=== PATIENT | male | born 1960 | race Caucasian/White ===

== ENCOUNTER 2017-05-25 15:45 | Observation (INO) | payer OTHER ==
[~2017-05-25] VITALS: Ht 172.7 cm; Wt 122.9 kg
[2017-05-25 15:56] VITALS: BP 165/78; PULSE 126; RESP 18; TEMP 98.2; O2SAT 97
[2017-05-25] MEDS ORDERED: LOSA50TA PO (15:59)
[2017-05-25] MEDS ORDERED: SODIUM CHLORIDE 0.9% FLUSH 10 ML FLUSH IVF PRN (16:00)
[2017-05-25 16:02] VITALS: O2SAT 97
[2017-05-25 16:14] LABS: BASOPHIL # 0.4 TH/MM3 (0-0.2); BASOPHIL % 2.4 % (0.0-2.0); EOSINOPHIL # 0.1 TH/MM3 (0-0.4); EOSINOPHIL % 0.9 % (0.0-4.0); HEMATOCRIT 49.9 % (39.0-51.0); LYMPH % 11.6 % (9.0-44.0); LYMPHOCYTE # 1.9 TH/MM3 (1.0-4.8); MEAN CELL VOLUME 80.8 FL (80.0-100.0); MEAN CORPUSCULAR HEMOGLOBIN 26.5 PG (27.0-34.0); MEAN CORPUSCULAR HGB CONC 32.8 % (32.0-36.0); MONO % 10.1 % (0.0-8.0); PLATELET COUNT 293 TH/MM3 (150-450); RED BLOOD COUNT 6.18 MIL/MM3 (4.50-5.90); RED CELL DISTRIBUTION WIDTH 13.5 % (11.6-17.2)
[2017-05-25 16:15] LABS: HEMO FLAGS DIFF FINAL
--- NOTE | 2017-05-25 16:15 | PD ---
HPI Chief Complaint: Chest Pain Time Seen by Provider: 16:00 Travel History International Travel<30 days: No Contact w/Intl Traveler<30days: No Traveled to known affect area: No History of Present Illness HPI 56-year-old male with history of hypertension, presents to the ER today because several days' history of substernal chest discomfort which worsens with deep breaths and burping. He states that his chest discomfort risk is currently a 5 out of 10. He has not noticed any relation to food. He denies any fevers, coughing, nausea, vomiting, abdominal pains, or any other symptoms. He states that he felt somewhat anxious and had trouble laying down last night because of it. He denies any recent long trips, or leg edema. Modifying Factors: None Associated Signs & Symptoms: Chest discomfort, anxiety, dyspnea Risk Factors: None PFSH Past Medical History Hypertension: Yes Influenza Vaccination: Yes Past Surgical History Surgical History: No Previous Surgery Social History Alcohol Use: Yes (OCCAS) Tobacco Use: No Substance Use: No Allergies-Medications (Allergen,Severity, Reaction): Coded Allergies: No Known Allergies (Unverified , 05/25/17) Reported Meds & Prescriptions Reported Meds & Active Scripts Active Reported Losartan (Losartan Potassium) 50 Mg Tab 50 Mg PO DAILY Review of Systems Except as stated in HPI: all other systems reviewed are Neg Physical Exam Narrative GENERAL: Well-developed middle age white male patient currently in mild distress. Awake and oriented 3. SKIN: Focused skin assessment warm/dry. HEAD: Atraumatic. Normocephalic. EYES: Pupils equal and round. No scleral icterus. No injection or drainage. ENT: No nasal bleeding or discharge. Mucous membranes pink and moist. NECK: Trachea midline. No JVD. CARDIOVASCULAR: Fast and regular rhythm. No murmur appreciated. RESPIRATORY: No accessory muscle use. Clear to auscultation. Breath sounds equal bilaterally. GASTROINTESTINAL: Abdomen soft, non-tender, nondistended. Hepatic and splenic margins not palpable. MUSCULOSKELETAL: No obvious deformities. No clubbing. No cyanosis. No edema. NEUROLOGICAL: Awake and alert. No obvious cranial nerve deficits. Motor grossly within normal limits. Normal speech. PSYCHIATRIC: Appropriate mood and affect; insight and judgment normal. Data Data Last Documented VS Vital Signs Date Time Temp Pulse Resp B/P Pulse Ox O2 Delivery O2 Flow Rate FiO2 05/25/17 16:02 97 Room Air 05/25/17 15:56 98.2 126 18 165/78 Orders Electrocardiogram (05/25/17 16:00) Ckmb (Isoenzyme) Profile (05/25/17 16:00) Complete Blood Count With Diff (05/25/17 16:00) Comprehensive Metabolic Panel (05/25/17 16:00) D-Dimer (05/25/17 16:00) Magnesium (Mg) (05/25/17 16:00) Prothrombin Time / Inr (Pt) (05/25/17 16:00) Act Partial Throm Time (Ptt) (05/25/17 16:00) Troponin I (05/25/17 16:00) Lipase (05/25/17 16:00) Chest, Single Ap (05/25/17 16:00) Ecg Monitoring (05/25/17 16:00) Bilateral Bp Monitoring (05/25/17 16:00) Iv Access Insert/Monitor (05/25/17 16:00) Oximetry (05/25/17 16:00) Oxygen Administration (05/25/17 16:00) Sodium Chloride 0.9% Flush (Ns Flush) (05/25/17 16:00) Aspirin (Aspirin) (05/25/17 17:00) Labs Laboratory Tests Test 05/25/17 16:00 White Blood Count 16.0 TH/MM3 Red Blood Count 6.18 MIL/MM3 Hemoglobin 16.4 GM/DL Hematocrit 49.9 % Mean Corpuscular Volume 80.8 FL Mean Corpuscular Hemoglobin 26.5 PG Mean Corpuscular Hemoglobin 32.8 % Concent Red Cell Distribution Width 13.5 % Platelet Count 293 TH/MM3 Mean Platelet Volume 8.5 FL Neutrophils (%) (Auto) 75.0 % Lymphocytes (%) (Auto) 11.6 % Monocytes (%) (Auto) 10.1 % Eosinophils (%) (Auto) 0.9 % Basophils (%) (Auto) 2.4 % Neutrophils # (Auto) 12.0 TH/MM3 Lymphocytes # (Auto) 1.9 TH/MM3 Monocytes # (Auto) 1.6 TH/MM3 Eosinophils # (Auto) 0.1 TH/MM3 Basophils # (Auto) 0.4 TH/MM3 CBC Comment DIFF FINAL Differential Comment Prothrombin Time 10.0 SEC Prothromb Time International 0.9 RATIO Ratio Activated Partial 25.4 SEC Thromboplast Time D-Dimer Quantitative (PE/DVT) LESS THAN 0.19 MG/L FEU Sodium Level 136 MEQ/L Potassium Level 3.7 MEQ/L Chloride Level 100 MEQ/L Carbon Dioxide Level 27.3 MEQ/L Anion Gap 9 MEQ/L Blood Urea Nitrogen 13 MG/DL Creatinine 1.10 MG/DL Estimat Glomerular Filtration 69 ML/MIN Rate Random Glucose 138 MG/DL Calcium Level 9.6 MG/DL Magnesium Level 2.2 MG/DL Total Bilirubin 0.5 MG/DL Aspartate Amino Transf 13 U/L (AST/SGOT) Alanine Aminotransferase 28 U/L (ALT/SGPT) Alkaline Phosphatase 79 U/L Total Creatine Kinase 60 U/L Troponin I LESS THAN 0.02 NG/ML Total Protein 8.1 GM/DL Albumin 3.8 GM/DL Lipase 222 U/L [facility] Medical Decision Making Medical Screen Exam Complete: Yes Emergency Medical Condition: Yes Medical Record Reviewed: Yes Interpretation(s) EKG shows sinus tachycardia at a rate of 116 bpm with no signs of acute ST-T changes. Laboratory Tests Test 05/25/17 16:00 White Blood Count 16.0 TH/MM3 (4.0-11.0) Red Blood Count 6.18 MIL/MM3 (4.50-5.90) Mean Corpuscular Hemoglobin 26.5 PG (27.0-34.0) Neutrophils (%) (Auto) 75.0 % (16.0-70.0) Monocytes (%) (Auto) 10.1 % (0.0-8.0) Basophils (%) (Auto) 2.4 % (0.0-2.0) Neutrophils # (Auto) 12.0 TH/MM3 (1.8-7.7) Monocytes # (Auto) 1.6 TH/MM3 (0-0.9) Basophils # (Auto) 0.4 TH/MM3 (0-0.2) Estimat Glomerular Filtration 69 ML/MIN (>89) Rate Random Glucose 138 MG/DL (74-106) Aspartate Amino Transf 13 U/L (15-37) (AST/SGOT) Troponin I LESS THAN 0.02 NG/ML (0.02-0.05) Last 24 hours Impressions Chest X-Ray 05/25/17 1600 Signed Impressions: Service Date/Time: Thursday, May 25, 2017 16:43 - CONCLUSION: No acute disease. Michael Parham MD Differential Diagnosis Dyspnea, chest discomfort, burpinggastritis versus GERD versus pneumonia versus ACS versus PE versus anxiety Narrative Course Chest x-ray did not show any signs of acute pulmonary processes. D-dimer is negative. Cardiac enzymes are negative. EKG did show sinus tachycardia but his heart rate came down to the 100 without any further treatment. I suspect that some of this could be an underlying anxiety. Abdomen is benign and I do not suspect an acute intra-abdominal process in this case. My plan would be to admit the patient for further treatment and evaluation in the chest pain center. Case was discussed with Dr. El for admission. Diagnosis Primary Impression: Chest pain Admitting Information Admitting Physician Requests: Admit Katarina Gipson MD May 25, 2017 16:15
[2017-05-25 16:20] LABS: CHLORIDE 100 MEQ/L (98-107); POTASSIUM 3.7 MEQ/L (3.5-5.1); SODIUM (NA) 136 MEQ/L (136-145)
[2017-05-25 16:24] LABS: ANION GAP 9 MEQ/L (5-15); BICARBONATE 27.3 MEQ/L (21.0-32.0); BLOOD UREA NITROGEN 13 MG/DL (7-18); MAGNESIUM 2.2 MG/DL (1.5-2.5)
[2017-05-25 16:27] LABS: ALT (GPT) 28 U/L (12-78); AST (GOT) 13 U/L (15-37); GLOMERULAR FILTRATION RATE 69 ML/MIN (>89)
[2017-05-25 16:29] LABS: TOTAL BILIRUBIN ADULT 0.5 MG/DL (0.2-1.0)
[2017-05-25 16:30] LABS: ALKALINE PHOSPHATASE 79 U/L (45-117)
[2017-05-25 16:34] LABS: APTT (PATIENT) 25.4 SEC (24.3-30.1); INTERNATIONAL NORMALIZED RATIO 0.9 RATIO
[2017-05-25 16:35] LABS: CREATINE KINASE 60 U/L (39-308)
--- NOTE | 2017-05-25 16:48 | RADRPT ---
EXAM DATE/TIME: 05/25/2017 16:43 [facility] COMPARISON: No previous studies available for comparison. INDICATIONS : Shortness of breath and chest pain. MEDICAL HISTORY : Hypertension. SURGICAL HISTORY : None. ENCOUNTER: Initial ACUITY: 1 day PAIN SCORE: 4/10 LOCATION: Bilateral chest FINDINGS: A single view of the chest demonstrates the lungs to be symmetrically aerated without evidence of mas s, infiltrate or effusion. The cardiomediastinal contours are unremarkable. Osseous structures are intact. CONCLUSION: No acute disease. Michael Parham MD on May 25, 2017 at 16:46 Board Certified Radiologist. This report was verified electronically.
[2017-05-25] MEDS ORDERED: ASPIRIN 325 MG TAB PO ONE (17:00)
[2017-05-25 17:04] VITALS: BP_SYST 140; BP_SYST 154; BP_DIAS 80; BP_DIAS 82; PULSE 108; RESP 20; O2SAT 95
[2017-05-25] MEDS ORDERED: MORPHINE SULFATE 4 MG/ML INJ IV PRN (17:30)
[2017-05-25] MEDS ORDERED: SODIUM CHLORIDE 0.9% FLUSH 10 ML FLUSH IV FLUSH PRN (17:30)
[2017-05-25] MEDS ORDERED: ONDANSETRON HCL 4 MG/2 ML VIAL IV PRN (17:30)
[2017-05-25] MEDS ORDERED: cloNIDine HCL 0.1 MG TAB PO PRN (17:30)
[2017-05-25] MEDS ORDERED: NITROGLYCERIN 0.4 MG SL 25 TABS/BTL SL PRN (17:30)
[2017-05-25] MEDS ORDERED: ACETAMINOPHEN/HYDROcodone 325 MG/7.5 MG TAB PO PRN (17:30)
[2017-05-25] MEDS ORDERED: ACETAMINOPHEN 500 MG CPLT PO PRN (17:30)
[2017-05-25 17:40] VITALS: BP 140/82; PULSE 78; RESP 18; O2SAT 97
[2017-05-25 20:00] VITALS: BP 147/88; PULSE 89; PULSE 93; RESP 20; TEMP 98.5; O2SAT 96
[2017-05-25] MEDS ORDERED: LOSARTAN 50 MG TAB PO SCH (20:00)
[2017-05-25 20:36] LABS: CREATINE KINASE 58 U/L (39-308)
[2017-05-25] MEDS: FAMOTIDINE 20 MG TAB PO SCH (20:44)
[2017-05-25] MEDS: SODIUM CHLORIDE 0.9% FLUSH 10 ML FLUSH IV FLUSH SCH (20:44)
[2017-05-25 22:43] LABS: CREATINE KINASE 51 U/L (39-308)
[2017-05-26 00:13] VITALS: BP 122/77; PULSE 89; RESP 16; TEMP 97.8; O2SAT 94
[2017-05-26 04:40] VITALS: BP 121/82; PULSE 87; RESP 18; TEMP 98.7; O2SAT 95
[2017-05-26 07:18] LABS: AUTOMATED NEUTROPHIL # 7.1 TH/MM3 (1.8-7.7); BASOPHIL # 0.1 TH/MM3 (0-0.2); BASOPHIL % 0.7 % (0.0-2.0); EOSINOPHIL # 0.1 TH/MM3 (0-0.4); EOSINOPHIL % 0.7 % (0.0-4.0); HEMATOCRIT 45.1 % (39.0-51.0); HEMO FLAGS DIFF FINAL; LYMPH % 16.5 % (9.0-44.0); LYMPHOCYTE # 1.7 TH/MM3 (1.0-4.8); MEAN CELL VOLUME 80.8 FL (80.0-100.0); MEAN CORPUSCULAR HEMOGLOBIN 26.5 PG (27.0-34.0); MEAN CORPUSCULAR HGB CONC 32.8 % (32.0-36.0); MONO % 11.2 % (0.0-8.0); NEUT % 70.9 % (16.0-70.0); PLATELET COUNT 249 TH/MM3 (150-450); RED BLOOD COUNT 5.57 MIL/MM3 (4.50-5.90); RED CELL DISTRIBUTION WIDTH 13.3 % (11.6-17.2); WHITE BLOOD COUNT 10.1 TH/MM3 (4.0-11.0)
[2017-05-26 08:00] VITALS: BP 121/86; PULSE 91; RESP 18; TEMP 97.6; O2SAT 94
[2017-05-26] MEDS: FAMOTIDINE 20 MG TAB PO SCH (08:04)
[2017-05-26] MEDS: SODIUM CHLORIDE 0.9% FLUSH 10 ML FLUSH IV FLUSH SCH (08:05)
[2017-05-26] MEDS ORDERED: ASPIRIN 325 MG TAB PO SCH (09:00)
--- NOTE | 2017-05-26 10:12 | HHI.HP ---
cc: Pierce Paula MD HPI Service [facility] Primary Care Physician Pierce Paula MD Admission Diagnosis chest pain Diagnoses: (1) SIRS (systemic inflammatory response syndrome) Diagnosis: Principal (2) Chest pain Diagnosis: Principal Chief Complaint: chest pain Travel History International Travel<30 Days: No Contact w/Intl Traveler <30 Da: No Traveled to Known Affected Are: No History of Present Illness Written by Sulema Jamison PA-C acting as scribe for Dr. El on 05/26/17 at ~ 1000. 56-year-old male with history of hypertension is admitted to chest pain center. The patient states he had a hard time breathing having chest pain with deep breathing which started at 2 AM yesterday morning. He states it lasted all the way up until 8 PM last night when he received pain medication. He denies any pain currently and denies any shortness of breath currently. He states he did have some right shoulder pain that night which then radiated to his right chest, but states he had been up late for a few hours doing a puzzle using his right arm although he is left handed. His states he was very tense during this time. The patient denies any other recent stressors. He denies any fevers or chills, recent cold or cough symptoms. Denies any headache , dizziness, palpitations, diaphoresis, numbness or tingling in the upper extremities, or pain to the jaws or neck. He does state he also started to experience indigestion at that time and had been burping all day. Denies eating anything different from normal. Denies any abdominal pain, nausea, vomiting, diarrhea. Review of Systems Except as stated in HPI: all other systems reviewed are Neg Past Family Social History Past Medical History HTN Past Surgical History Appendectomy at age 12 Reported Medications Losartan (Losartan Potassium) 50 Mg Tab 50 Mg PO DAILY Allergies: Coded Allergies: No Known Allergies (Unverified , 05/25/17) Family History Mother: Healthy at age 83; starting to have dementia. Father: of cancer. Sister: Smoker with lung problems. Brother: of lung cancer, smoker. No history of heart disease in immediate family members. Social History Patient drinks 3-4 beers once or twice per week. He did drink 3 beers at a [employer] game the night of his symptoms. Patient denies any history of tobacco use. Denies history of illicit drug use Physical Exam Vital Signs Vital Signs Date Time Temp Pulse Resp B/P Pulse Ox O2 Delivery O2 Flow Rate FiO2 05/26/17 08:00 97.6 91 18 121/86 94 05/26/17 04:40 98.7 87 18 121/82 95 05/26/17 00:13 97.8 89 16 122/77 94 05/25/17 20:00 93 05/25/17 20:00 98.5 89 20 147/88 96 05/25/17 17:40 78 18 140/82 97 Room Air 05/25/17 17:04 108 20 154/80 95 Room Air 140/82 05/25/17 16:02 97 Room Air 05/25/17 16:02 97 Room Air 05/25/17 15:58 97 Room Air 05/25/17 15:56 98.2 126 18 165/78 97 Physical Exam GENERAL: This is a well-nourished, well-developed patient, in no apparent distress. SKIN: No rashes, ecchymoses or lesions. Warm and dry. HEAD: Atraumatic. Normocephalic. EYES: No scleral icterus. No injection or drainage. NECK: Trachea midline. CHEST: No reproducible tenderness over the chest. CARDIOVASCULAR: Regular rate and rhythm without murmurs, gallops, or rubs. RESPIRATORY: Clear to auscultation. Breath sounds equal bilaterally. No wheezes , rales, or rhonchi. GASTROINTESTINAL: Abdomen soft, non-tender, nondistended. MUSCULOSKELETAL: No tenderness to palpation over the R shoulder. Full active flexion of both shoulders with no elicitation of chest pain. No lower extremity edema bilaterally. NEUROLOGICAL: Awake and alert. Motor grossly within normal limits. Normal speech. PSYCHIATRIC: Normal mood and affect. Laboratory Laboratory Tests Test 05/25/17 05/25/17 05/25/17 05/26/17 16:00 18:42 21:33 06:47 White Blood Count 16.0 10.1 Red Blood Count 6.18 5.57 Hemoglobin 16.4 14.8 Hematocrit 49.9 45.1 Mean Corpuscular Volume 80.8 80.8 Mean Corpuscular Hemoglobin 26.5 26.5 Mean Corpuscular Hemoglobin 32.8 32.8 Concent Red Cell Distribution Width 13.5 13.3 Platelet Count 293 249 Mean Platelet Volume 8.5 8.1 Neutrophils (%) (Auto) 75.0 70.9 Lymphocytes (%) (Auto) 11.6 16.5 Monocytes (%) (Auto) 10.1 11.2 Eosinophils (%) (Auto) 0.9 0.7 Basophils (%) (Auto) 2.4 0.7 Neutrophils # (Auto) 12.0 7.1 Lymphocytes # (Auto) 1.9 1.7 Monocytes # (Auto) 1.6 1.1 Eosinophils # (Auto) 0.1 0.1 Basophils # (Auto) 0.4 0.1 CBC Comment DIFF FINAL DIFF FINAL Differential Comment Prothrombin Time 10.0 Prothromb Time International 0.9 Ratio Activated Partial 25.4 Thromboplast Time D-Dimer Quantitative (PE/DVT) LESS THAN 0.19 Sodium Level 136 Potassium Level 3.7 Chloride Level 100 Carbon Dioxide Level 27.3 Anion Gap 9 Blood Urea Nitrogen 13 Creatinine 1.10 Estimat Glomerular Filtration 69 Rate Random Glucose 138 Calcium Level 9.6 Magnesium Level 2.2 Total Bilirubin 0.5 Aspartate Amino Transf 13 (AST/SGOT) Alanine Aminotransferase 28 (ALT/SGPT) Alkaline Phosphatase 79 Total Creatine Kinase 60 58 51 Troponin I LESS THAN 0.02 LESS THAN 0.02 LESS THAN 0.02 Total Protein 8.1 Albumin 3.8 Lipase 222 Result Diagram: 05/26/17 0647 05/25/17 1600 Imaging Last Impressions Chest X-Ray 05/25/17 1600 Signed Impressions: Service Date/Time: Thursday, May 25, 2017 16:43 - CONCLUSION: No acute disease. Michael Parham MD Course EKG #1 with sinus tachycardia 116, left axis deviation, short [place] interval, incomplete right bundle branch block. There is artifact in V2 making interpretation difficult, questionable T wave changes. EKG #2 with normal sinus rhythm, left axis deviation, incomplete right bundle branch block, and no evidence of ischemia. EKG #3 sinus tachycardia rate 95, left axis deviation, incomplete right bundle branch block, and no evidence of ischemia. Assessment and Plan Assessment and Plan 56-year-old male with: SIRS: Resolved. HR 126 on arrival. WBC elevated at 16. Afebrile. No source of infection. Likely stress reaction. ED physician documents possible underlying anxiety at that time. -WBC improved at 10.1. today. HR improved without intervention. Chest pain, atypical: Pleuritic as well as right sided with right shoulder pain. Also had burping. Patient no longer has pain since receiving [place] last night. He denies any shortness of breath. EKGs as above with sinus rhythm, tachycardia improved, LAD, RBBB, but no evidence of ischemia. Troponin 3 less than 0.02. D-dimer negative. Chest x-ray without acute disease. Differentials include costochondritis, GERD, anxiety, pleurisy, and less likely cardiac etiology. -325 mg daily aspirin -Nitro/[place]/morphine prn pain -Telemetry -Patient states he walks the treadmill normally. Nuclear ETT to be performed as patient has right bundle-branch block. HTN: BP elevated on arrival but improved. -Losartan continued last night -Clonidine as needed GI prophylaxis: Pepcid. DVT prevention: OOB ad yoel. Myocardial perfusion scan with fixed anteroapical perfusion abnormality with paradoxical motion characteristic of a myocardial infarct. There is NO evidence of stress-induced reversible perfusion abnormalities. 50% EF. Likely had silent RI in the past. Results were discussed with patient and his . He was also informed he has a RBBB which is likely related to this. Patient will be started on baby aspirin daily. He has no history of GI bleeding. He states his cholesterol is wnl. He is advised to follow up with PCP and if needed he can be referred to supervisor wound for further evaluation. Discharge disposition: Home in stable condition. Diet: Heart healthy. Patient advised to eat low-salt, low-fat, low-cholesterol diet. Activity: Regular. Patient advised to exercise regularly. Medications: Continue home medication. Start baby aspirin daily. Follow-up: PCP 1 week, cardiology. This note was transcribed by karina BO I, Dr. Jacek El personally performed the history, physical exam, and medical decision making; and confirmed the accuracy of the information in the transcribed note. Authenticated by Dr. Jacek El on 05/26/17 at 10:00. Code Status Full code Discussed Condition With ED physician, patient Problem Qualifiers (1) Chest pain: Qualified Code: R07.1 - Chest pain on breathing Sulema Jamison May 26, 2017 10:12 Jacek El MD May 26, 2017 10:12
--- NOTE | 2017-05-26 12:22 | EKG ---
Date Performed: 05/25/2017 Time Performed: 16:07:17 PTAGE: 56 years EKG: SINUS TACHYCARDIA WITH SHORT [place] INTERVAL MARKED LEFT AXIS DEVIATION LOW QRS VOLTAGE IN PREC ORDIAL LEADS PATTERN CONSISTENT WITH PULMONARY DISEASE INCOMPLETE RIGHT BUNDLE BRANCH BLOCK NONSPECIF IC ST ELEVATION ABNORMAL ECG NO PREVIOUS TRACING DOCTOR: Jaiden Lewis Interpretating Date/Time 05/26/2017 12:18:35
--- NOTE | 2017-05-26 12:30 | EKG ---
Date Performed: 05/25/2017 Time Performed: 21:37:19 PTAGE: 56 years EKG: Sinus rhythm MARKED LEFT AXIS DEVIATION INCOMPLETE RIGHT BUNDLE BRANCH BLOCK NONSPECIFIC ST ELEVATION ABNORMAL EC G PREVIOUS TRACING : 05/25/2017 18.38 Compared to prior tracing no significant change DOCTOR: Jaiden Lewis Interpretating Date/Time 05/26/2017 12:26:02
--- NOTE | 2017-05-26 12:31 | EKG ---
Date Performed: 05/25/2017 Time Performed: 18:38:42 PTAGE: 56 years EKG: Sinus rhythm MARKED LEFT AXIS DEVIATION LOW QRS VOLTAGE IN PRECORDIAL LEADS INCOMPLETE RIGHT BUNDLE BRANCH BLOCK NONSPECIFIC ST ELEVATION ABNORMAL ECG PREVIOUS TRACING Compared to prior tracing no significant change DOCTOR: Jaiden Lewis Interpretating Date/Time 05/26/2017 12:27:10
--- NOTE | 2017-05-26 13:34 | RADRPT ---
EXAM DATE/TIME: 05/26/2017 12:06 [facility] COMPARISON: No previous studies available for comparison. INDICATIONS : Abnormal EKG. Right bundle branch block. DOSE: 35 mCi Tc99m Myoview at stress 11 mCi Tc99m Myoview at rest REST HEART RATE: 96 BPM TARGET HEART RATE: 138 BPM MAX HEART RATE: 152 BPM REST BLOOD PRESSURE: 125/78 mmHg MAX BLOOD PRESSURE: 150/80 mmHg EJECTION FRACTION: 50% MEDICAL HISTORY : Hypertension. SURGICAL HISTORY : Appendectomy. ENCOUNTER: Initial ACUITY: 1 day PAIN SCALE: 8/10 LOCATION: Substernal chest TECHNIQUE: The patient underwent upright treadmill exercise in the chest pain center. Continuous ECG tracing wa s monitored during stress. Gated SPECT imaging was performed after stress, and conventional SPECT im aging was performed at rest. The examination was performed on a SPECT/CT scanner, both attenuation-c orrected and non-corrected datasets were reviewed. FINDINGS: DISTRIBUTION: The maximum perfused segment at stress is in the lateral and inferior vidales. PERFUSION STUDY: Fixed perfusion abnormality is identified in the anteroapical region of the left ventricle. There are no reversible perfusion abnormalities. GATED STUDY: The anteroapical region left ventricle is dyskinetic with paradoxical motion. Wall motion is otherwis e well-preserved. Ejection fraction is 50%. CONCLUSION: 1. Fixed anteroapical perfusion abnormality with paradoxical motion characteristic of a myocardial in farct. 2. No evidence of stress-induced reversible perfusion abnormalities. 3. 50% ejection fraction. RISK CATEGORY: Low (<1% Annual Mortality Rate) Maikel Albrecht MD on May 26, 2017 at 13:29 Board Certified Radiologist. This report was verified electronically.
--- NOTE | 2017-05-26 14:12 | HHI.DCPOC ---
Discharge Care Plan Diagnosis: (1) Chest pain (2) SIRS (systemic inflammatory response syndrome) (3) Incomplete RBBB (4) Abnormal myocardial perfusion study Your Health Problems Are: Chest Pain Goals to Promote Your Health * To prevent worsening of your condition and complications * To maintain your health at the optimal level Directions to Meet Your Goals Take your medications as prescribed Follow your dietary instruction Follow activity as directed Keep your appointments as scheduled Take your immunizations and boosters as scheduled If your symptoms worsen call your PCP, if no PCP go to Urgent Care Center or Emergency Room Smoking is Dangerous to Your Health. Avoid second hand smoke Call the 24-hour hour crisis hotline for domestic abuse at Sulema Jamison May 26, 2017 14:11
[2017-05-26] MEDS ORDERED: ASPI81TA11 PO (14:20)
--- NOTE | 2017-05-26 15:04 | TR ---
Date Performed: 05/26/2017 Time Performed: 12:33:10 DOCTOR: Arash Sparks DRUG LIST: CLINICAL HISTORY: CHEST PAIN REASON FOR TEST: Chest pain REASON FOR ENDING: OBSERVATION: CONCLUSION: Nuclear ETT. Patient tolerated IRA protocol with Total Exercise Time=4:[address]=952 % Max HR Achieved=94.0% Maximum AE=194/80. Testing stopped secondary to goal achieved and suff icient tracer circulation. Patient had no chest pain. HR and BP appropriately responsed to exercise. BP recovered appropriately. HR took longer to recover. COMMENTS: Conclusion: Normal treadmill exercise. No evidence of ischemia. Radionuclide was inje cted one minute prior to ending test. Nuclear imaging and interpretation are pending.
== END 2017-05-26 15:50 | disposition home or self-care (01) ==
LOC: PHED 15:45 → UNDOADMOB 17:05 → PHEDA 17:05 → PH3B 17:55 → PHEDA 17:55 → UNDODISOB 05-26 15:50
PROVIDERS: ADMIT Hospitalist; ATTEND Hospitalist
DX: R65.10 Systemic inflammatory response syndrome (SIRS) of non-infectious origin without acute organ dysfunction (principal); R07.1 Chest pain on breathing; R06.02 Shortness of breath; M25.511 Pain in right shoulder; I10 Essential (primary) hypertension; K30 Functional dyspepsia; R00.0 Tachycardia, unspecified; I45.10 Unspecified right bundle-branch block; F41.9 Anxiety disorder, unspecified; R94.31 Abnormal electrocardiogram [ECG] [EKG]
CPT/HCPCS: 71010; 78452; 80053; 82550; 83690; 83735; 84484; 85025; 85379; 85610; 85730; 93005; 93017; 99285; A9502; G0378